=== PATIENT | female | born 1980 | race Caucasian/White ===

== ENCOUNTER → 2021-11-29 09:32 | Outpatient (BNVA) | payer SELFPAY | PROVIDERS: Referring Provider Registered Nurse; Visit Provider Orthopaedic Surgery | DX: M79.641 Pain in right hand (principal); M67.441 Ganglion, right hand | CPT/HCPCS: 73130 ==

== ENCOUNTER 2023-08-15 12:58 | Outpatient (CLI) | payer MEDICAID, SELFPAY ==
--- NOTE | 2023-08-15 13:01 | CT_ITS ---
WS: [id number] CT ABDOMEN AND PELVIS WITH CONTRAST HISTORY: INTRA-ABDOMINAL AND PELVIC SWELLING, PELVIC MASS TECHNIQUE: Imaging performed of the abdomen and pelvis with IV contrast. Single phase imaging of the abdomen. Coronal and sagittal reformats are submitted. All CT scans at [facility] use at [address] one of these dose optimization techniques: automated exposure control; mA and/or kV adjustment per patient size (includes targeted exams where dose is matched to clinical indication); or iterative re construction. IV CONTRAST: Omnipaque 350; 100 mL IV. Oral contrast: Yes. DLP: 1027.90 mGy.cm COMPARISON: None available. Lower thorax: Lung bases are clear. Heart is normal size. No hiatal hernia. Liver/biliary system: Normal size with no intrahepatic dilatation. Gallbladder: Normal. No gallstones or wall thickening. No pericholecystic fluid. Pancreas: Normal size pancreas and pancreatic duct. No adjacent inflammation. Spleen: Normal size spleen. No mass or infarct. Adrenal glands: Normal. Right kidney: Normal. Left kidney: Normal. Aorta: Normal. Lymphadenopathy: None. Free fluid: None. GI tract: No obstruction. Normal stomach and small bowel. Prior appendectomy. Abdominal wall: Unremarkable abdominal wall. No hernia. Pelvis: There is a large mass centered within the pelvis. This is a cystic mass with septations arisi ng from the central pelvis. Mass abuts the uterus and slightly displaces the uterus. Cystic mass exte nds over a length of 15.7 cm, transversely 13.7 cm in anterior posterior 12.4 cm. There are thin sept ations. No large area of nodularity or solid component. There is no ascites within the pelvis. By his tory patient's RIGHT ovary has been surgically removed. This is probably a LEFT ovarian cystic mass. Prior tubal ligation. Small bilateral inguinal lymph nodes. Bones: Unremarkable. IMPRESSION: 1. Large cystic mass with thin septations arising from the central pelvis into the upper abdomen. Ma ss measures 13.7 x 12.4 cm and extends over a length of 15.7 cm. Suspect this is most likely a LEFT o varian cystic mass. Surgical evaluation and removal recommended. This is probably of benign etiology as there is no adenopathy and no soft tissue nodularity along the septum. This will need to be surgic ally excised for confirmation of pathology. 2. No ascites or adenopathy. 3. History of RIGHT oophorectomy.
[2023-08-15] MEDS: iohexol 350 mg/mL 500 mL Btl (per mL) PO (13:55)
[2023-08-15] MEDS: iohexol 350 mg/mL 500 mL Btl (per mL) IV (14:12)
== END 2023-08-15 12:59 | disposition home or self-care (01) ==
PROVIDERS: PCP Nurse Practitioner Family; Visit Provider Obstetrics & Gynecology Gynecologic Oncology
DX: R19.00 Intra-abdominal and pelvic swelling, mass and lump, unspecified site (principal); E66.01 Morbid (severe) obesity due to excess calories
CPT/HCPCS: 74177; Q9967

== ENCOUNTER 2025-03-10 13:10 | Outpatient (CLI) | payer MEDICAID, SELFPAY ==
--- NOTE | 2025-03-10 13:20 | MM_ITS ---
WS: [id number] BILATERAL 3D TOMOSYNTHESIS DIGITAL SCREENING MAMMOGRAPHY WITH CAD CLINICAL INFORMATION: SCREENING HISTORY: Screening mammogram. No current complaints. COMPARISON: Baseline TECHNIQUE: Bilateral CC and MLO views. FINDINGS: The breasts are composed of heterogeneous fibroglandular density tissue, which can limit the detection of small underlying mass lesions. No suspicious mass, asymmetry, calcifications, or architectural distortion. No evidence of malignancy. MM/MM scr tomosynthesis [id number] IMPRESSION: DENSITY: The breasts are heterogeneously dense, which may obscure small masses. BI-RADS: 1 - Negative FOLLOW UP: 1 Year Follow-up Recommend return to annual screening mammography.
== END 2025-03-10 13:11 | disposition home or self-care (01) ==
LOC: MOBLMAM 13:11
PROVIDERS: PCP Nurse Practitioner Family; Visit Provider Nurse Practitioner Family
DX: Z12.31 Encounter for screening mammogram for malignant neoplasm of breast (principal); R92.333 Mammographic heterogeneous density, bilateral breasts
CPT/HCPCS: 77063; 77067